=== PATIENT | male | born 1995 | race Caucasian/White ===

== ENCOUNTER 2016-11-03 13:16 | Emergency (ER) | payer OTHER ==
[~2016-11-03] VITALS: Ht 175.3 cm; Wt 59.0 kg
--- NOTE | 2016-11-03 16:14 | ED GI/GU/ABDOMINAL COMPLAINT ---
History of Present Illness General Chief Complaint: Nausea, Vomiting, Diarrhea Stated Complaint: WEAK,N/V [id number] Source: patient, family Exam Limitations: no limitations Vital Signs & Intake/Output Vital Signs & Intake/Output Vital Signs Date Time Temp Pulse Resp B/P Pulse O2 O2 Flow FiO2 Ox Delivery Rate 11/03 1633 98.2 71 20 106/60 98 Room Air Allergies Coded Allergies: No Known Drug Allergies (11/03/16) Uncoded Allergies: Allergy Other N Med Allergies N Reconcile Medications No Known Home Medications Triage Note: C/O WEAKNESS, NAUSEA AFTER EATING, WITH DIARRHEA HAD SWEATING. Triage Nurses Notes Reviewed? yes HPI: Patient presents for evaluation of nausea and just not feeling well the began gradually over the past week and half to 2 weeks. Patient states he has had a decreased PO intake and lightheadedness with 1-2 episodes of nonbloody diarrhea daily. There has been no associated rashes vomiting fever or cold symptoms. He states that he does get abdominal pain when not eating. Symptoms are described as mild to moderate in intensity and nothing seems to make him feel better. He states he presented to the emergency department today because he felt very weak. He denies any known ill contacts or recent travel. Past History Travel History [facility]ed [facility] past 21 day No Medical History Any Pertinent Medical History? see below for history Neurological: NONE EENT: epistaxis Cardiovascular: NONE Respiratory: NONE Gastrointestinal: NONE Hepatic: NONE Renal: NONE Musculoskeletal: NONE Psychiatric: NONE Endocrine: NONE Blood Disorders: NONE Cancer(s): NONE TELECOMMUNICATIONS CONSULTANT/Reproductive: NONE Tetanus Vaccine: Surgical History Surgical History: non-contributory Psychosocial History What is your primary language Mongolian Tobacco Use: Never used ETOH Use: denies use Family History Hx Contributory? No Review of Systems Review of Systems Constitutional: Reports: no symptoms. EENTM: Reports: no symptoms. Respiratory: Reports: no symptoms. Cardiovascular: Reports: no symptoms. GI: Reports: see HPI. Genitourinary: Reports: no symptoms. Musculoskeletal: Reports: no symptoms. Skin: Reports: no symptoms. Neurological/Psychological: Reports: no symptoms. Hematologic/Endocrine: Reports: no symptoms. Immunologic/Allergic: Reports: no symptoms. All Other Systems: Reviewed and Negative Physical Exam Physical Exam Gastrointestinal: see below Comments: Gen.: Well-nourished, well-developed, no acute respiratory distress. Head: Normocephalic, atraumatic. Eyes: Normal inspection bilaterally Ears: Normal inspection bilaterally Nose: Normal inspection Throat/mouth : Moist mucosa Neck: Supple, full range of motion, no goiter Heart: Regular rate and rhythm, no murmurs rubs or gallops Lungs: Clear to auscultation bilaterally with normal air entry Chest: Nontender Back: Normal range of motion Abdomen: Soft, nontender, nondistended, normal bowel sounds Extremities: Normal range of motion grossly, equal radial pulses, no cyanosis clubbing or edema Neurologic: Cranial nerves grossly intact, speech is clear Skin: warm and dry Psychiatric: Calm, cooperative, no apparent delusions or hallucinations Core Measures ACS in differential dx? No Severe Sepsis Present: No Septic Shock Present: No Progress Differential Diagnosis: viral syndrome Plan of Care: Orders Procedure Date/time Status THYROID STIMULATING HORMONE 11/03 1613 Complete MONOSPOT 11/03 1613 Complete COMPREHENSIVE METABOLIC PANEL 11/03 1613 Complete CBC WITHOUT DIFFERENTIAL 11/03 1613 Complete Laboratory Tests 11/03/16 1624: Anion Gap 14, Estimated GFR > 60, BUN/Creatinine Ratio 16.7, Glucose 72, Calcium 9.8, Total Bilirubin 1.3, AST 22, ALT 27, Alkaline Phosphatase 86, Total Protein 8.1, Albumin 5.0, Globulin 3.1, Albumin/Globulin Ratio 1.6, TSH 0.942, RBC 5.25, MCV 87.4, MCH 29.3, RDW 12.2, MPV 8.8, Gran % 47.7, Lymphocytes % 41.7, Monocytes % 6.9, Eosinophils % 2.7, Basophils % 1.0, Absolute Granulocytes 2.8, Absolute Lymphocytes 2.5, Absolute Monocytes 0.4, Absolute Eosinophils 0.2, Absolute Basophils 0.1, PUBS MCHC 33.5, Infectious [place] Titer NEGATIVE Initial ED EKG: none Comments: 11/03/2016 6:34:35 PM I have updated the perineal and his mother regarding the test results. The etiology of his symptoms is unclear at this point. Plan follow up with his primary care physician and a GI specialist. Treatment with acid suppressor. Fluids tolerated during her emergency department stay. Departure Departure Disposition: HOME OR SELF CARE Condition: Stable Clinical Impression Primary Impression: Nonspecific abdominal pain Secondary Impressions: Marijuana smoker Referrals: KAM TORRES,ELENA Fontenot (PCP/Family) Additional Instructions: Zofran as needed for nausea or vomiting, Zantac as prescribed for suppression of stomach acid. Follow-up with your rn emergency on Sunday for reevaluation. [place] diet. Stop smoking marijuana. Return if any concerns or sudden worsening. Thank you for choosing the [facility] Emergency Department for your care. It was a pleasure to serve you today. Aron Hooks M.D. [facility] Departure Forms: Customer Survey General Discharge Information Prescriptions: Current Visit Scripts Ondansetron (Zofran Odt) 1 TAB SL Q6P PRN NAUSEA/VOMITING #10 TAB Ranitidine HCl (Zantac) 1 TAB PO QPM #15 TAB
[2016-11-03 17:35] LABS: ABSOLUTE BASOPHIL COUNT 0.1 /CUMM (0.0-0.2); ABSOLUTE EOSINOPHIL COUNT 0.2 /CUMM (0.0-0.7); ABSOLUTE GRANULOCYTE CT 2.8 /CUMM (1.4-6.5); ABSOLUTE LYMPH COUNT 2.5 /CUMM (1.2-3.4); ABSOLUTE MONOCYTE COUNT 0.4 /CUMM (0.10-0.60); EOSINOPHIL % 2.7 % (0-5); GRANULOCYTE % 47.7 % (42.2-75.2); HEMATOCRIT 45.9 % (42-52); MEAN CORPUSCULAR HGB 29.3 PG (27.0-31.0); MEAN CORPUSCULAR HGB CONC 33.5 G/DL (33.0-37.0); MEAN CORPUSCULAR VOLUME 87.4 FL (80.0-94.0); MEAN PLATELET VOLUME 8.8 FL (7.4-10.4); PLATELET COUNT 188 /CUMM (130-400); RBC DISTRIBUTION WIDTH 12.2 % (11.5-14.5); RED BLOOD CELL CT 5.25 /CUMM (4.70-6.10); WHITE BLOOD CELL COUNT 5.9 /CUMM (4.8-10.8)
[2016-11-03] MEDS ORDERED: ZOFRAN ODT4 M1 SL (18:38)
[2016-11-03] MEDS ORDERED: ZANTAC300 MG PO (18:38)
[2016-11-03 18:47] VITALS: BP 109/67
== END 2016-11-03 18:56 ==
LOC: ERH 13:16
PROVIDERS: Emergency Medicine
DX: R10.9 Unspecified abdominal pain (principal); F12.10 Cannabis abuse, uncomplicated